=== PATIENT | male | born 1950 | race American Indian/Alaskan Native ===

== ENCOUNTER 2017-10-29 13:07 | Day surgery (SDC) | payer MEDICARE ==
--- NOTE | 2017-10-29 14:22 | Short Stay Summary ---
Short Stay Documentation Date of service: 10/29/17 - History Principal diagnosis: Malfunctioning dialysis access Past Medical History: dialysis, ESRD Past Surgical History: Other (LUE AVG) Social history: no significant social history, lives with family - Allergies and Medications Current Medications: Allergies No Known Allergies Allergy (Verified 01/23/15 13:57) Home Medications Medication Instructions Recorded Confirmed Last Taken Type Cholecalciferol (Vitamin D3) 5,000 unit PO DAILY 01/23/15 01/31/15 01/29/15 History [Vitamin D3] Insulin Aspart Protam & Aspart 0 unit SQ BID 01/23/15 01/31/15 01/30/15 20:00 History [NovoLOG Mix 70-30 Flexpen] Metoprolol [Lopressor TAB] 50 mg PO BID 01/23/15 01/31/15 01/31/15 03:00 History NIFEdipine XL [Procardia Xl] 90 mg PO QDAY 01/23/15 01/31/15 01/31/15 03:00 History Simvastatin [Zocor TAB] 20 mg PO QHS 01/23/15 01/31/15 01/30/15 21:00 History HYDROcodone/APAP 7.5-325 [[place] 1 each PO Q6HR PRN #40 tablet 01/31/15 Unknown Rx 7.5/325] - Physical exam General appearance: no acute distress Integumentary: no rash, no growths HEENT: Atraumatic Lungs: Normal air movement Heart: Regular rate Gastrointestinal: normal Male Genitourinary: deferred Rectal Exam: deferred Extremities: no ischemia, abnormal (LUE AVG with decreased thrill) - Brief post op/procedure progress note Date of procedure: 10/29/17 Pre-op diagnosis: malfunctioning dialysis access Post-op diagnosis: same Procedure: Fistulagram Anesthesia: local Surgeon: FEDERICO FULLER Estimated blood loss: minimal Pathology: none Condition: stable - Disposition Condition at discharge: Good Disposition: DC-01 TO HOME OR SELFCARE Short Stay Discharge Plan Activity: advance as tolerated Weight Bearing Status: Weight Bear as Tolerated Diet: regular Wound: keep clean and dry, per your surgeon's advice Follow up with: RICCO CUMMINS MD [Primary Care Provider] - 7 Days
[2017-10-29] MEDS ORDERED: SODIUM CHLORIDE FLUSH SYRINGE 10 ML IV NR (15:00)
[2017-10-29] MEDS ORDERED: HEPARIN 10,000 UNITS/10 ML ONE (15:15)
[2017-10-29] MEDS: VERSED ONE ×2 (15:34→15:42)
[2017-10-29] MEDS: SUBLIMAZE ONE ×2 (15:34→15:42)
[2017-10-29] MEDS: XYLOCAINE 2% INFILTRATI ONE ×2 (15:35→15:42)
[2017-10-29] MEDS: NACL 0.9% 250ML 250 ML ONE ×2 (15:36→15:40)
[2017-10-29] MEDS: HEPARIN/NS 5000 UNIT/500ML(CATH LAB) 500 ML IR ONE ×2 (15:36→15:40)
--- NOTE | 2017-10-29 15:55 | Operative Report ---
Operative Report Operative Report: EXAM: LEFT UPPER EXTREMITY FISTULOGRAM CLINICAL INDICATION: FOLLOWING CLOTS AT DIALYSIS, MALFUNCTIONING DIALYSIS ACCESS DATE: 10/29/2017 PROCEDURE: Following an explanation of the risks, benefits and alternatives; written informed consent was obtained. The patient was brought to the injury graphic suite and placed in supine position on the examination table. Initial evaluation of the arm demonstrated a thrill throughout the fistula. The patient 's left upper arm and fistula were prepped and draped in the usual sterile fashion. 1% lidocaine was used for anesthesia. The fistula was cannulated towards the venous outflow using a 7 cm 21-gauge needle. A 0.018 guidewire was advanced centrally. The needle was removed and a micro-sheath placed. The 0.018 guidewire was exchanged for a 0.035 guidewire and the micro-sheath exchanged for a 6 [place] vascular sheath. Contrast was injected through the sheath and imaging obtained at multiple locations including the central veins. The central veins are widely patent. Previously placed stents in the cephalic arch are widely patent. The body of the fistula has to pseudoaneurysms however it is widely patent with brisk flow throughout the entire fistula. The guidewire sheath were removed and hemostasis achieved using 3-0 Vicryl suture. Dermabond was also applied. The patient tolerated the procedure well. There were no immediate post procedure complications. Conscious sedation was performed under the guidance of radiologic nursing. Continuous cardiopulmonary monitoring was utilized. IMPRESSION: 1) Left upper extremity fistulogram demonstrated a widely patent fistula throughout its course. Would recommend that the fistula be cannulated by a more experienced dialysis access person
[2017-10-29 16:44] VITALS: BP 183/100
== END 2017-10-29 16:50 | disposition home or self-care (01) ==
LOC: CATHLABREC 13:07
PROVIDERS: ATTEND Radiology Diagnostic Radiology
DX: T82.898A Other specified complication of vascular prosthetic devices, implants and grafts, initial encounter (principal); N18.6 End stage renal disease; Y83.2 Surgical operation with anastomosis, bypass or graft as the cause of abnormal reaction of the patient, or of later complication, without mention of misadventure at the time of the procedure
CPT/HCPCS: 36415; 36901; 84132; C1769; C1894; J1644; J2250; J3010; J7050; Q9967

== ENCOUNTER 2017-11-18 07:03 | Day surgery (SDC) | payer MEDICARE ==
[2017-11-18] MEDS ORDERED: WATER FOR IRRIG STERILE ONE (07:43)
[2017-11-18] MEDS ORDERED: WATER FOR IRRIG STERILE IR ONE (07:43)
[2017-11-18] MEDS ORDERED: DIPRIVAN 10 MG/ML IV ONE ×2 (07:57)
--- NOTE | 2017-11-18 07:59 | Anesthesia Consultation ---
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 - Pulmonary Hx Smoking: Yes (quit in 1975) Hx Asthma: No Hx Pneumonia: Yes (not currently) Hx Sleep Apnea: No - Cardiovascular System Hx Hypertension: Yes (metoprolol this AM) Hx Heart Attack/AMI: No - Central Nervous System Hx Seizures: No CVA: No Hx Psychiatric Problems: No - Gastrointestinal Hx Gastroesophageal Reflux Disease: Yes (Mild, no meds) - Endocrine Hx Renal Disease: Yes Hx End Stage Renal Disease: Yes (HD started in 2015, last dialyzed yesterday) Hx Liver Disease: No Hx Insulin Dependent Diabetes: Yes Hx Non-Insulin Dependent Diabetes: No - Hematic Hx Anemia: No Hx Sickle Cell Disease: No - Other Systems Hx Cancer: No Hx Obesity: No - Additional Comments Anesthesia Medical History Comments: NAC
--- NOTE | 2017-11-18 07:59 | Anesthesia Day of Surgery ---
Anesthesia Day of Surgery - Day of Surgery Patient Examined: Yes Patient H&P Reviewed: Yes Patient is NPO: Yes Beta Blockers: Yes
[2017-11-18] MEDS ORDERED: XYLOCAINE MPF 2% ONE (08:00)
[2017-11-18] MEDS ORDERED: NACL 0.9% 1000 ML 1,000 ML IV SCH (08:00)
--- NOTE | 2017-11-18 09:24 | Short Stay Summary ---
Short Stay Documentation Date of service: 11/18/17 Narrative H&P: The patient presents for surveillance colonoscopy for hx of colon polyps. Last study 5 years ago. - History Past Medical History: diabetes, ESRD, hypertension Past Surgical History: No surgical history Social history: no significant social history, , lives with family, no smoking, no alcohol abuse, no prescription drug abuse - Allergies and Medications Current Medications: Allergies No Known Allergies Allergy (Verified 01/23/15 13:57) Home Medications Medication Instructions Recorded Confirmed Last Taken Type Cholecalciferol (Vitamin D3) 5,000 unit PO DAILY 01/23/15 10/29/17 10/28/17 History [Vitamin D3] Insulin Aspart Protam & Aspart 70 unit SQ QAM 01/23/15 10/29/17 10/28/17 History [NovoLOG Mix 70-30 Flexpen] Metoprolol [Lopressor TAB] 50 mg PO BID 01/23/15 10/29/17 10/28/17 History NIFEdipine XL [Procardia Xl] 90 mg PO QDAY 01/23/15 10/29/17 10/28/17 History HYDROcodone/APAP 7.5-325 [[place] 1 each PO Q6HR PRN #40 tablet 01/31/15 10/29/17 Unknown Rx 7.5/325] Insulin Aspart Protam & Aspart 40 units SQ QPM 10/29/17 10/29/17 10/28/17 History [NovoLOG Mix 70-30 Flexpen] Active Medications Sodium Chloride (Nacl 0.9% 1000 Ml) 1,000 mls @ 50 mls/hr IV DIRECT MICHELLE Last Admin: 11/18/17 07:45 Dose: 75 mls - Physical exam General appearance: no acute distress, well-nourished HEENT: Atraumatic, PERRLA, EOMI, Mucous membr. moist/pink Lungs: Clear to auscultation, Normal air movement Breasts: deferred Heart: Regular rate, Normal S1, Normal S2, No murmurs, Murmur Gastrointestinal: normoactive bowel sounds, no tenderness, no distended, no masses, no guarding, no organomegaly Male Genitourinary: deferred Rectal Exam: normal exam-external/orifice, normal rectal tone, no mass Extremities: no ischemia, pulses intact, pulses symmetrical, No edema, normal temperature, normal color, Full ROM Neurological: Normal gait, Normal speech, Strength at 5/5 X4 ext, Normal tone, Sensation intact, Cranial nerves 3-12 NL - Brief post op/procedure progress note Date of procedure: 11/18/17 Findings: see dictated report Estimated blood loss: none Pathology: list (transverse colon polyp) Specimen disposition: to lab Condition: stable - Disposition Condition at discharge: Good Disposition: DC-01 TO HOME OR SELFCARE - Discharge Diagnoses (1) History of colonic polyps Status: Acute Short Stay Discharge Plan Activity: other (no driving for 24 hours) Diet: diabetic, renal Follow up with: RICCO CUMMINS MD [Primary Care Provider] - 7 Days
--- NOTE | 2017-11-18 09:25 | Operative Report ---
Operative Report Operative Report: Date of procedure: 11/18/2017 Preprocedure diagnosis: History of colon polyps last study 5 years ago Post procedure diagnosis: 6 mm transverse colon polyp Procedure: Colonoscopy to the cecum with cold snare polypectomy Endoscopist: Dr. Oliver Anesthesia: Monitored anesthesia care per anesthesia department Estimated blood loss: 0 Medications: Monitored anesthesia care. See separate report by anesthesia for details. After careful discussion of the nature and purpose of the procedure as well as details of the technique risks benefits and alternatives the patient gave consent. Please see recent history and physical from the office. The patient was placed in the left lateral decubitus position and medicated per anesthesia. A rectal exam was performed sphincter tone was normal there were no masses palpable. The [employer] 570 scope was passed transanally and advanced under continuous direct vision without difficulty to the cecum. The colon was well prepared. The cecum was normal. The ascending colon was normal and on forward and retroflexed views. The transverse colon revealed a 6 mm pedunculated polyp. The polyp was removed with cold snare resection and retrieved by suction. The descending colon and sigmoid colon were normal. The rectum was normal on forward and retroflexed views. The procedure was well-tolerated overall and the patient was observed in recovery. Conclusions: 6 mm transverse colon polyp, otherwise normal study. Plan: Await pathology. Repeat colonoscopy in 5 years. Signed electronically: Kyle Oliver M.D.
[2017-11-18 09:43] VITALS: BP 134/64
== END 2017-11-18 07:04 | disposition home or self-care (01) ==
LOC: GIO 07:03
PROVIDERS: ATTEND Internal Medicine Gastroenterology
DX: Z12.11 Encounter for screening for malignant neoplasm of colon (principal); D12.3 Benign neoplasm of transverse colon; K21.9 Gastro-esophageal reflux disease without esophagitis; E11.22 Type 2 diabetes mellitus with diabetic chronic kidney disease; I12.0 Hypertensive chronic kidney disease with stage 5 chronic kidney disease or end stage renal disease; N18.6 End stage renal disease; H54.8 Legal blindness, as defined in USA; Z99.2 Dependence on renal dialysis; Z86.010 Personal history of colon polyps; Z79.4 Long term (current) use of insulin; Z87.891 Personal history of nicotine dependence
CPT/HCPCS: 45385; 82962; 88305; J2704; J7030